=== PATIENT | male | born 1965 | race Caucasian/White ===

== ENCOUNTER 2021-07-25 17:20 | Inpatient (IN) | payer BC ==
[~2021-07-25] VITALS: Ht 182.9 cm; Wt 93.9 kg
[2021-07-25] MEDS ORDERED: ENOXAPARIN SODIUM INJ 100 MG/ML SYR SC STA (17:44)
[2021-07-25] MEDS ORDERED: ASPIRIN 81 MG CHEW TAB PO ONE ×3 (17:45→21:15)
[2021-07-25 17:52] LABS: BASOPHILS % 0.4 % (0.0-1.0); EOSINOPHILS # (AUTO) 0.2 (0.0-0.4); EOSINOPHILS % 2.2 % (0.0-6.0); HEMATOCRIT 35.2 % (38.2-49.6); HEMOGLOBIN 11.2 g/dL (14.0-18.0); LYMPHOCYTES # (AUTO) 2.4 (1.0-3.2); LYMPHOCYTES % 28.5 % (18.0-39.1); MEAN CORPUSCULAR HEMOGLOBIN 26.5 pg (28-32); MEAN CORPUSCULAR HGB CONC 31.8 g/dL (31-35); MEAN CORPUSCULAR VOLUME 83.2 fL (81-99); MONOCYTES # (AUTO) 0.5 (0.2-0.8); MONOCYTES % 5.7 % (4.4-11.3); NEUTROPHILS # (AUTO) 5.4 (2.1-6.9); NEUTROPHILS % 62.7 % (38.7-80.0); PLATELET COUNT 206 x10e3/uL (140-360); RED BLOOD COUNT 4.23 x10e6/uL (4.3-5.7); RED CELL DISTRIBUTION WIDTH 13.3 % (11.7-14.4)
[2021-07-25] MEDS: ONDANSETRON HCL INJ 2MG/ML 2ML 2 MG/ML VIAL IV PRN (18:10)
[2021-07-25] MEDS: Morphine 4mg Syringe 4 MG/ML INJ IV PRN (18:10)
[2021-07-25 18:12] LABS: ALANINE AMINOTRANSFERASE 45 IU/L (0-55); ALBUMIN 3.9 g/dL (3.5-5.0); ALBUMIN/GLOBULIN RATIO 1.4 (0.8-2.0); ALKALINE PHOSPHATASE 113 IU/L (40-150); ANION GAP 15.8 mmol/L (8-16); BLOOD UREA NITROGEN 24 mg/dL (7-26); BUN/CREATININE RATIO 15 (6-25); CALCIUM 9.2 mg/dL (8.4-10.2); CARBON DIOXIDE 27 mmol/L (22-29); CHLORIDE 98 mmol/L (98-107); CREATINE KINASE 231 IU/L (30-200); CREATININE, SERUM 1.61 mg/dL (0.72-1.25); EST GLOMERULAR FILTRATION RATE 45 ML/MIN (60-); GLUCOSE 104 mg/dL (74-118); POTASSIUM 3.8 mmol/L (3.5-5.1); SODIUM 137 mmol/L (136-145)
[2021-07-25 20:00] VITALS: BP 126/89
[2021-07-25 21:00] VITALS: BP 126/89
[2021-07-25 21:45] VITALS: BP 126/89
[2021-07-25] MEDS ORDERED: HYDROXYZINE HCL25 MG PO (23:29)
[2021-07-25] MEDS ORDERED: TRAZODONE HCL50 MG PO (23:29)
[2021-07-25] MEDS ORDERED: VALSARTAN-HCTZ1 EACH PO (23:29)
[2021-07-25] MEDS ORDERED: CRESTOR10 MG PO (23:29)
[2021-07-25] MEDS ORDERED: CLONAZEPAM1 MG PO (23:29)
[2021-07-26] VITALS (13 sets, daily range): BP systolic 90–137; BP diastolic 61–93
[2021-07-26 02:55] LABS: CREATINE KINASE MB 3.5 ng/mL (0-5.0)
[2021-07-26 05:49] LABS: BASOPHILS % 0.5 % (0.0-1.0); EOSINOPHILS # (AUTO) 0.2 (0.0-0.4); EOSINOPHILS % 3.4 % (0.0-6.0); HEMATOCRIT 36.8 % (38.2-49.6); HEMOGLOBIN 11.6 g/dL (14.0-18.0); LYMPHOCYTES # (AUTO) 2.6 (1.0-3.2); LYMPHOCYTES % 40.3 % (18.0-39.1); MEAN CORPUSCULAR HEMOGLOBIN 26.8 pg (28-32); MEAN CORPUSCULAR HGB CONC 31.5 g/dL (31-35); MONOCYTES # (AUTO) 0.4 (0.2-0.8); MONOCYTES % 6.2 % (4.4-11.3); NEUTROPHILS # (AUTO) 3.2 (2.1-6.9); NEUTROPHILS % 49.3 % (38.7-80.0); PLATELET COUNT 191 x10e3/uL (140-360); RED BLOOD COUNT 4.33 x10e6/uL (4.3-5.7); RED CELL DISTRIBUTION WIDTH 13.3 % (11.7-14.4)
[2021-07-26 06:17] LABS: ALBUMIN 3.8 g/dL (3.5-5.0); ALBUMIN/GLOBULIN RATIO 1.4 (0.8-2.0); ANION GAP 15.4 mmol/L (8-16); CALCIUM 9.1 mg/dL (8.4-10.2); CREATININE, SERUM 1.46 mg/dL (0.72-1.25); POTASSIUM 4.4 mmol/L (3.5-5.1)
[2021-07-26] MEDS ORDERED: HEPARIN SOD (PORCINE) 1000 UNIT/ML 30ML ONE (07:18)
[2021-07-26] MEDS ORDERED: VERAPAMIL HCL 2.5 MG/ML 2 ML VIAL ONE (07:18)
[2021-07-26] MEDS ORDERED: MIDAZOLAM HCL 2 MG/2 ML VIAL ONE ×4 (07:18→09:58)
[2021-07-26] MEDS ORDERED: FENTANYL CITRATE/PF 100MCG/2 ML INJ ONE ×2 (07:19→09:17)
[2021-07-26] MEDS ORDERED: LIDOCAINE HCL 2% LOCAL 20 ML VIAL ONE (07:19)
[2021-07-26] MEDS ORDERED: SODIUM CHLORIDE 0.9% 1000ML 1,000 ML ONE (07:21)
[2021-07-26] MEDS ORDERED: HEPARIN SOD/SOD CHLORIDE 2,000 ML ONE (07:21)
[2021-07-26] MEDS ORDERED: NITROGLYCERIN/D5W 200 MCG/ML 250 ML ONE (07:21)
[2021-07-26] MEDS ORDERED: IOPAMIDOL 370 MG/ML 200 ML INFUS..BTL INJ ONE ×3 (07:21→10:45)
[2021-07-26] MEDS ORDERED: ASPIRIN 325 MG TAB ONE (09:17)
[2021-07-26] MEDS ORDERED: TICAGRELOR 90 MG TABLET ONE (09:17)
[2021-07-26 10:51] LABS: CREATINE KINASE 182 IU/L (30-200)
[2021-07-26] MEDS: Morphine 4mg Syringe 4 MG/ML INJ IV PRN (15:23)
[2021-07-26 17:52] LABS: CHOL/HDL RATIO 3.6 (3.9-4.7)
[2021-07-27] VITALS (8 sets, daily range): BP systolic 95–128; BP diastolic 66–90
[2021-07-27 12:13] LABS: BASOPHILS % 0.5 % (0.0-1.0); EOSINOPHILS # (AUTO) 0.1 (0.0-0.4); HEMATOCRIT 35.9 % (38.2-49.6); HEMOGLOBIN 11.3 g/dL (14.0-18.0); LYMPHOCYTES # (AUTO) 1.6 (1.0-3.2); LYMPHOCYTES % 23.6 % (18.0-39.1); MEAN CORPUSCULAR HEMOGLOBIN 26.7 pg (28-32); MEAN CORPUSCULAR HGB CONC 31.5 g/dL (31-35); MEAN CORPUSCULAR VOLUME 84.7 fL (81-99); MONOCYTES # (AUTO) 0.5 (0.2-0.8); MONOCYTES % 7.1 % (4.4-11.3); NEUTROPHILS # (AUTO) 4.4 (2.1-6.9); NEUTROPHILS % 66.5 % (38.7-80.0); PLATELET COUNT 187 x10e3/uL (140-360); RED BLOOD COUNT 4.24 x10e6/uL (4.3-5.7); RED CELL DISTRIBUTION WIDTH 13.4 % (11.7-14.4)
[2021-07-27 12:34] LABS: ALBUMIN 3.5 g/dL (3.5-5.0); ALBUMIN/GLOBULIN RATIO 1.3 (0.8-2.0); ANION GAP 13.3 mmol/L (8-16); CALCIUM 8.9 mg/dL (8.4-10.2); CREATININE, SERUM 1.27 mg/dL (0.72-1.25); POTASSIUM 4.3 mmol/L (3.5-5.1)
[2021-07-27] MEDS ORDERED: HEPARIN SOD (PORCINE) 1000 UNIT/ML 30ML ONE (12:39)
[2021-07-27] MEDS ORDERED: LIDOCAINE HCL 2% LOCAL 20 ML VIAL ONE ×2 (12:40→14:50)
[2021-07-27] MEDS ORDERED: MIDAZOLAM HCL 2 MG/2 ML VIAL ONE ×3 (12:40→14:18)
[2021-07-27] MEDS ORDERED: FENTANYL CITRATE/PF 100MCG/2 ML INJ ONE ×2 (12:40→14:18)
[2021-07-27] MEDS ORDERED: SODIUM CHLORIDE 0.9% 1000ML 1,000 ML ONE (12:41)
[2021-07-27] MEDS ORDERED: IOPAMIDOL 370 MG/ML 200 ML INFUS..BTL INJ ONE (12:41)
[2021-07-27] MEDS ORDERED: NITROGLYCERIN/D5W 200 MCG/ML 250 ML ONE (12:41)
[2021-07-27] MEDS ORDERED: HEPARIN SOD/SOD CHLORIDE 2,000 ML ONE (12:41)
[2021-07-27] MEDS ORDERED: DIPHENHYDRAMINE HCL INJ 50 MG/ML VIAL ONE (13:30)
[2021-07-27] MEDS ORDERED: CLOPIDOGREL BISULFATE 75 MG TAB ONE (14:51)
[2021-07-27] MEDS ORDERED: ASPIRIN 325 MG TAB ONE (14:52)
[2021-07-27] MEDS: ONDANSETRON HCL INJ 2MG/ML 2ML 2 MG/ML VIAL IV PRN ×2 (15:21→19:50)
[2021-07-27] MEDS: Morphine 4mg Syringe 4 MG/ML INJ IV PRN ×2 (15:21→19:50)
[2021-07-28] VITALS: BP 129/75
[2021-07-28 04:00] VITALS: BP 114/71
[2021-07-28 08:29] VITALS: BP 106/71
[2021-07-28 11:37] VITALS: BP 155/72
[2021-07-28 11:41] VITALS: BP 124/66
[2021-07-28] MEDS ORDERED: CLOPIDOGREL BISULFATE 75 MG TAB PO SCH (13:00)
[2021-07-28] MEDS ORDERED: ASPIRIN 325 MG TAB PO ONE (13:00)
[2021-07-28] MEDS ORDERED: PLAVIX75 MG PO (13:34)
[2021-07-28] MEDS ORDERED: ASPIRIN325 MG PO (13:34)
[2021-07-28] MEDS ORDERED: ASPIRIN CHEW81 MG PO (15:03)
[2021-07-28] MEDS ORDERED: LIPITOR20 MG PO (15:03)
[2021-07-28 15:51] VITALS: BP 120/87
[2021-07-28] MEDS ORDERED: ATORVASTATIN 20 MG TAB PO SCH (21:00)
[2021-07-29] MEDS ORDERED: ASPIRIN 325 MG TAB PO SCH (09:00)
== END 2021-07-28 16:31 | disposition home or self-care (01) | DRG 247 ==
LOC: ER 17:29 → ERHOLD 17:34 → MED/SURG 19:56
PROC: 027035Z Dilation of Coronary Artery, One Artery with Two Drug-eluting Intraluminal Devices, Percutaneous Approach (ICD-10-PCS; principal; 2021-07-26)
PROC: 02703ZZ Dilation of Coronary Artery, One Artery, Percutaneous Approach (ICD-10-PCS; 2021-07-26)
PROC: 4A023N7 Measurement of Cardiac Sampling and Pressure, Left Heart, Percutaneous Approach (ICD-10-PCS; 2021-07-26)
PROC: B2111ZZ Fluoroscopy of Multiple Coronary Arteries using Low Osmolar Contrast (ICD-10-PCS; 2021-07-26)
PROC: 02703Z6 Dilation of Coronary Artery, One Artery, Bifurcation, Percutaneous Approach (ICD-10-PCS; 2021-07-27)
PROC: B2001ZZ Plain Radiography of Single Coronary Artery using Low Osmolar Contrast (ICD-10-PCS; 2021-07-27)
PROC: 4A023N7 Measurement of Cardiac Sampling and Pressure, Left Heart, Percutaneous Approach (ICD-10-PCS; 2021-07-27)
DX: I25.110 Atherosclerotic heart disease of native coronary artery with unstable angina pectoris (principal); N17.9 Acute kidney failure, unspecified; E78.5 Hyperlipidemia, unspecified; F41.9 Anxiety disorder, unspecified; F32.A Depression, unspecified; Z20.822 Contact with and (suspected) exposure to COVID-19; I12.9 Hypertensive chronic kidney disease with stage 1 through stage 4 chronic kidney disease, or unspecified chronic kidney disease; N18.30 Chronic kidney disease, stage 3 unspecified
CPT/HCPCS: 36415; 71045; 80053; 80061; 82550; 82553; 83880; 84484; 85025; 85379; 92920; 92921; 92928; 92929; 93005; 93306; 96361; 96365; 99152; 99153; 99284; C1725; C1760; C1769; C1874; C1887; C1894; J1200; J1644; J1650; J2001; J2250; J2270; J2405; J3010; J7030; Q9967; U0002

== ENCOUNTER 2021-11-28 13:11 | Inpatient (IN) | payer BC ==
[~2021-11-28] VITALS: Ht 185.4 cm; Wt 94.3 kg
[~2021-11-28 13:11] MED LIST: ASPIRIN CHEW81 MG PO; ASPIRIN325 MG PO; CLONAZEPAM1 MG PO; CRESTOR10 MG PO; HYDROXYZINE HCL25 MG PO; LIPITOR20 MG PO; PLAVIX75 MG PO; TRAZODONE HCL50 MG PO; VALSARTAN-HCTZ1 EACH PO
[2021-11-28 13:28] LABS: BASOPHILS % 0.2 % (0.0-1.0); EOSINOPHILS % 0.2 % (0.0-6.0); HEMATOCRIT 40.8 % (38.2-49.6); HEMOGLOBIN 12.8 g/dL (14.0-18.0); LYMPHOCYTES # (AUTO) 1.9 (1.0-3.2); LYMPHOCYTES % 10.9 % (18.0-39.1); MEAN CORPUSCULAR HEMOGLOBIN 26.7 pg (28-32); MEAN CORPUSCULAR HGB CONC 31.4 g/dL (31-35); MEAN CORPUSCULAR VOLUME 85.2 fL (81-99); MONOCYTES # (AUTO) 0.9 (0.2-0.8); MONOCYTES % 5.4 % (4.4-11.3); NEUTROPHILS # (AUTO) 14.5 (2.1-6.9); NEUTROPHILS % 82.8 % (38.7-80.0); PLATELET COUNT 232 x10e3/uL (140-360); RED BLOOD COUNT 4.79 x10e6/uL (4.3-5.7); RED CELL DISTRIBUTION WIDTH 14.3 % (11.7-14.4)
[2021-11-28] MEDS: PIPERACILLIN/TAZOBACTAM 3.375 GM in SODIUM CHLORIDE 0.9% 50ML 50 ML IV SCH ×2 (13:32→21:40)
[2021-11-28] MEDS ORDERED: ONDANSETRON HCL INJ 2MG/ML 2ML 2 MG/ML VIAL IV STA (13:36)
[2021-11-28] MEDS ORDERED: Morphine 4mg Syringe 4 MG/ML INJ IV STA (13:36)
[2021-11-28 13:44] LABS: ALBUMIN 4.4 g/dL (3.5-5.0); ALBUMIN/GLOBULIN RATIO 1.2 (0.8-2.0); ANION GAP 20.9 mmol/L (8-16); CREATININE, SERUM 1.99 mg/dL (0.72-1.25); POTASSIUM 3.9 mmol/L (3.5-5.1)
[2021-11-28 14:02] LABS: CLARITY,URINE CLEAR (CLEAR); COLOR,URINE YELLOW (YELLOW); KETONES,URINE NEGATIVE (NEGATIVE); LEUKOCYTE ESTERASE ,URINE NEGATIVE (NEGATIVE); NITRITE,URINE NEGATIVE (NEGATIVE); PROTEIN,URINE DIPSTICK 2+ (NEGATIVE); URINE UROBILINOGEN 1 mg/dL (0.2 - 1)
[2021-11-28] MEDS ORDERED: SODIUM CHLORIDE 0.9% 1000ML 1,000 ML IV STA (14:11)
[2021-11-28 14:16] LABS: AMORPHOUS SEDIMENT,URINE MODERATE (FEW); BACTERIA,URINE MANY /HPF; EPITHELIAL CELLS,URINE MODERATE /LPF
[2021-11-28] MEDS ORDERED: SODIUM CHLORIDE 0.9% 50ML 50 ML ONE (14:24)
[2021-11-28] MEDS ORDERED: IOPAMIDOL 370 MG/ML 200 ML INFUS..BTL INJ ONE (14:24)
[2021-11-28] MEDS: SODIUM CHLORIDE 0.9% 1000ML 1,000 ML IV SCH ×2 (15:30→21:40)
[2021-11-28 16:52] VITALS: BP 124/80
[2021-11-28 16:56] VITALS: BP 124/80
[2021-11-28 17:07] VITALS: BP 124/80
[2021-11-28] MEDS: ONDANSETRON HCL INJ 2MG/ML 2ML 2 MG/ML VIAL IV PRN (18:06)
[2021-11-28] MEDS: Morphine 4mg Syringe 4 MG/ML INJ IV PRN ×2 (18:06→23:48)
[2021-11-28 20:00] VITALS: BP 100/54
[2021-11-28 21:00] VITALS: BP 100/54
[2021-11-29] VITALS (7 sets, daily range): BP systolic 99–146; BP diastolic 57–92
[2021-11-29] MEDS ORDERED: BISACODYL 5 MG TAB EC PO ONE ×2 (01:00→01:30)
[2021-11-29] MEDS ORDERED: METRONIDAZOLE 500MG/NS 100ML 100 ML IV STA (01:12)
[2021-11-29] MEDS: Morphine 4mg Syringe 4 MG/ML INJ IV PRN ×4 (01:19→21:10)
[2021-11-29] MEDS: PIPERACILLIN/TAZOBACTAM 3.375 GM in SODIUM CHLORIDE 0.9% 50ML 50 ML IV SCH ×4 (02:30→21:10)
[2021-11-29] MEDS ORDERED: CITRATE OF MAGNESIA 300ML BOTTLE PO ONE ×2 (05:00→07:00)
[2021-11-29 05:12] LABS: BASOPHILS % 0.3 % (0.0-1.0); EOSINOPHILS # (AUTO) 0.2 (0.0-0.4); EOSINOPHILS % 1.7 % (0.0-6.0); HEMATOCRIT 35.1 % (38.2-49.6); HEMOGLOBIN 11.3 g/dL (14.0-18.0); LYMPHOCYTES # (AUTO) 2.2 (1.0-3.2); LYMPHOCYTES % 18.9 % (18.0-39.1); MEAN CORPUSCULAR HEMOGLOBIN 26.6 pg (28-32); MEAN CORPUSCULAR HGB CONC 32.2 g/dL (31-35); MEAN CORPUSCULAR VOLUME 82.6 fL (81-99); MONOCYTES # (AUTO) 0.9 (0.2-0.8); MONOCYTES % 7.5 % (4.4-11.3); NEUTROPHILS # (AUTO) 8.2 (2.1-6.9); PLATELET COUNT 206 x10e3/uL (140-360); RED BLOOD COUNT 4.25 x10e6/uL (4.3-5.7); RED CELL DISTRIBUTION WIDTH 14.2 % (11.7-14.4)
[2021-11-29] MEDS: METRONIDAZOLE 500MG/NS 100ML 100 ML IV SCH ×3 (05:23→17:56)
[2021-11-29 05:57] LABS: ALBUMIN 3.5 g/dL (3.5-5.0); ALBUMIN/GLOBULIN RATIO 1.3 (0.8-2.0); ANION GAP 13.7 mmol/L (8-16); CALCIUM 9.1 mg/dL (8.4-10.2); POTASSIUM 3.7 mmol/L (3.5-5.1)
[2021-11-29 06:47] LABS: CREATININE, SERUM 1.55 mg/dL (0.72-1.25)
[2021-11-29] MEDS: SODIUM CHLORIDE 0.9% 1000ML 1,000 ML IV SCH ×3 (07:15→21:11)
[2021-11-29] MEDS: ASPIRIN 81 MG CHEW TAB PO SCH (09:57)
[2021-11-29] MEDS: CLOPIDOGREL BISULFATE 75 MG TAB PO SCH (09:57)
[2021-11-29] MEDS ORDERED: LIDOCAINE HCL 2% LOCAL INJ 5 ML SDV VIAL INJ ONE (12:09)
[2021-11-29] MEDS ORDERED: HYOSCYAMINE SULFATE 0.5 MG/ML INJ ONE (12:09)
[2021-11-29] MEDS ORDERED: MIDAZOLAM HCL 2 MG/2 ML VIAL ONE (12:49)
[2021-11-29] MEDS ORDERED: FENTANYL CITRATE/PF 100MCG/2 ML INJ ONE (12:49)
[2021-11-30] VITALS (8 sets, daily range): BP systolic 101–129; BP diastolic 61–79
[2021-11-30] MEDS: METRONIDAZOLE 500MG/NS 100ML 100 ML IV SCH ×4 (00:21→17:23)
[2021-11-30] MEDS: PIPERACILLIN/TAZOBACTAM 3.375 GM in SODIUM CHLORIDE 0.9% 50ML 50 ML IV SCH ×4 (04:02→20:53)
[2021-11-30] MEDS: Morphine 4mg Syringe 4 MG/ML INJ IV PRN ×5 (04:20→22:10)
[2021-11-30] MEDS: ASPIRIN 81 MG CHEW TAB PO SCH (08:34)
[2021-11-30] MEDS: SODIUM CHLORIDE 0.9% 1000ML 1,000 ML IV SCH ×3 (08:34→22:09)
[2021-11-30] MEDS: ONDANSETRON HCL INJ 2MG/ML 2ML 2 MG/ML VIAL IV PRN ×3 (08:34→17:24)
[2021-11-30] MEDS: CLOPIDOGREL BISULFATE 75 MG TAB PO SCH (08:34)
[2021-11-30] MEDS: LORAZEPAM INJ 2 MG/ML VIAL IV PRN (15:26)
[2021-11-30] MEDS: FLUTICASONE PROPIONATE NASAL SPRAY NS SCH (22:00)
[2021-11-30] MEDS: LORATADINE 10 MG TAB PO SCH (22:10)
[2021-12-01] VITALS (8 sets, daily range): BP systolic 106–130; BP diastolic 56–78
[2021-12-01] MEDS: METRONIDAZOLE 500MG/NS 100ML 100 ML IV SCH ×5 (00:23→23:06)
[2021-12-01] MEDS: PIPERACILLIN/TAZOBACTAM 3.375 GM in SODIUM CHLORIDE 0.9% 50ML 50 ML IV SCH ×4 (02:18→21:38)
[2021-12-01] MEDS: Morphine 4mg Syringe 4 MG/ML INJ IV PRN ×5 (02:19→21:45)
[2021-12-01 05:04] LABS: HEMATOCRIT 35.7 % (38.2-49.6); HEMOGLOBIN 11.1 g/dL (14.0-18.0); MEAN CORPUSCULAR HEMOGLOBIN 26.4 pg (28-32); MEAN CORPUSCULAR HGB CONC 31.1 g/dL (31-35)
[2021-12-01 05:05] LABS: BASOPHILS # (AUTO) 0.1 (0.0-0.1); BASOPHILS % 0.7 % (0.0-1.0); EOSINOPHILS # (AUTO) 0.2 (0.0-0.4); EOSINOPHILS % 3.1 % (0.0-6.0); LYMPHOCYTES # (AUTO) 1.8 (1.0-3.2); LYMPHOCYTES % 25.7 % (18.0-39.1); MONOCYTES # (AUTO) 0.4 (0.2-0.8); MONOCYTES % 5.9 % (4.4-11.3); NEUTROPHILS # (AUTO) 4.5 (2.1-6.9); NEUTROPHILS % 64.3 % (38.7-80.0); PLATELET COUNT 191 x10e3/uL (140-360); RED CELL DISTRIBUTION WIDTH 14.1 % (11.7-14.4)
[2021-12-01 05:43] LABS: ANION GAP 12.9 mmol/L (8-16); CALCIUM 8.5 mg/dL (8.4-10.2); CREATININE, SERUM 1.29 mg/dL (0.72-1.25); POTASSIUM 3.9 mmol/L (3.5-5.1)
[2021-12-01] MEDS: CLOPIDOGREL BISULFATE 75 MG TAB PO SCH (08:51)
[2021-12-01] MEDS: ASPIRIN 81 MG CHEW TAB PO SCH (08:51)
[2021-12-01] MEDS: FLUTICASONE PROPIONATE NASAL SPRAY NS SCH ×3 (08:51→17:18)
[2021-12-01] MEDS ORDERED: FLUTICASONE PROPIONATE NASAL SPRAY NS SCH (09:00)
[2021-12-01] MEDS: SODIUM CHLORIDE 0.9% 1000ML 1,000 ML IV SCH ×3 (09:26→23:15)
[2021-12-01] MEDS ORDERED: TRAZODONE HCL 50 MG TAB PO PRN (21:00)
[2021-12-01] MEDS: MAGNESIUM HYDROXIDE 30 ML UDC PO SCH (21:38)
[2021-12-01] MEDS: ATORVASTATIN 20 MG TAB PO SCH (21:38)
[2021-12-01] MEDS: ONDANSETRON HCL INJ 2MG/ML 2ML 2 MG/ML VIAL IV PRN (21:38)
[2021-12-02] VITALS (8 sets, daily range): BP systolic 97–134; BP diastolic 56–75
[2021-12-02] MEDS: PIPERACILLIN/TAZOBACTAM 3.375 GM in SODIUM CHLORIDE 0.9% 50ML 50 ML IV SCH ×4 (02:55→20:10)
[2021-12-02 05:30] LABS: BASOPHILS % 0.5 % (0.0-1.0); EOSINOPHILS # (AUTO) 0.2 (0.0-0.4); EOSINOPHILS % 2.3 % (0.0-6.0); HEMATOCRIT 33.1 % (38.2-49.6); HEMOGLOBIN 10.3 g/dL (14.0-18.0); LYMPHOCYTES # (AUTO) 1.5 (1.0-3.2); LYMPHOCYTES % 19.9 % (18.0-39.1); MEAN CORPUSCULAR HEMOGLOBIN 26.3 pg (28-32); MEAN CORPUSCULAR HGB CONC 31.1 g/dL (31-35); MEAN CORPUSCULAR VOLUME 84.7 fL (81-99); MONOCYTES # (AUTO) 0.4 (0.2-0.8); NEUTROPHILS # (AUTO) 5.3 (2.1-6.9); PLATELET COUNT 210 x10e3/uL (140-360); RED BLOOD COUNT 3.91 x10e6/uL (4.3-5.7); RED CELL DISTRIBUTION WIDTH 14.2 % (11.7-14.4)
[2021-12-02 06:00] LABS: ANION GAP 11.3 mmol/L (8-16); CALCIUM 8.1 mg/dL (8.4-10.2); CREATININE, SERUM 1.41 mg/dL (0.72-1.25); POTASSIUM 4.3 mmol/L (3.5-5.1)
[2021-12-02] MEDS: METRONIDAZOLE 500MG/NS 100ML 100 ML IV SCH ×3 (06:50→17:00)
[2021-12-02] MEDS: Morphine 4mg Syringe 4 MG/ML INJ IV PRN ×2 (06:52→13:00)
[2021-12-02] MEDS: ASPIRIN 81 MG CHEW TAB PO SCH (09:00)
[2021-12-02] MEDS: FLUTICASONE PROPIONATE NASAL SPRAY NS SCH ×2 (09:04→17:42)
[2021-12-02] MEDS: SODIUM CHLORIDE 0.9% 1000ML 1,000 ML IV SCH ×3 (11:02→23:37)
[2021-12-02] MEDS: ERYTHROMYCIN 500 MG TAB PO SCH ×2 (17:55→23:13)
[2021-12-02] MEDS: NEOMYCIN SULFATE 500 MG TAB PO SCH ×2 (17:55→23:13)
[2021-12-02] MEDS: MAGNESIUM HYDROXIDE 30 ML UDC PO SCH (20:10)
[2021-12-02] MEDS: LORATADINE 10 MG TAB PO SCH (20:10)
[2021-12-02] MEDS: ATORVASTATIN 20 MG TAB PO SCH (20:10)
[2021-12-02 21:57] LABS: % IRON SATURATION 38 % (15-50); IRON 79 ug/dL (65-175); TOTAL IRON BINDING CAPACITY 209 ug/dL (261-478); TRANSFERRIN 149 mg/dL (174-364)
[2021-12-03] VITALS (11 sets, daily range): BP systolic 113–151; BP diastolic 64–91
[2021-12-03] MEDS: METRONIDAZOLE 500MG/NS 100ML 100 ML IV SCH ×2 (00:01→05:20)
[2021-12-03] MEDS: PIPERACILLIN/TAZOBACTAM 3.375 GM in SODIUM CHLORIDE 0.9% 50ML 50 ML IV SCH ×4 (01:53→21:03)
[2021-12-03 06:28] LABS: BASOPHILS % 0.5 % (0.0-1.0); EOSINOPHILS # (AUTO) 0.2 (0.0-0.4); EOSINOPHILS % 2.3 % (0.0-6.0); HEMATOCRIT 34.7 % (38.2-49.6); HEMOGLOBIN 10.7 g/dL (14.0-18.0); LYMPHOCYTES # (AUTO) 1.7 (1.0-3.2); LYMPHOCYTES % 20.9 % (18.0-39.1); MEAN CORPUSCULAR HEMOGLOBIN 26.3 pg (28-32); MEAN CORPUSCULAR HGB CONC 30.8 g/dL (31-35); MEAN CORPUSCULAR VOLUME 85.3 fL (81-99); MONOCYTES # (AUTO) 0.5 (0.2-0.8); MONOCYTES % 5.8 % (4.4-11.3); NEUTROPHILS # (AUTO) 5.7 (2.1-6.9); NEUTROPHILS % 70.1 % (38.7-80.0); PLATELET COUNT 224 x10e3/uL (140-360); RED BLOOD COUNT 4.07 x10e6/uL (4.3-5.7); RED CELL DISTRIBUTION WIDTH 14.5 % (11.7-14.4)
[2021-12-03 06:32] LABS: CALCIUM IONIZED 1.2 mmol/L (1.09-1.30)
[2021-12-03 07:08] LABS: ALBUMIN 3.2 g/dL (3.5-5.0); ALBUMIN/GLOBULIN RATIO 1.2 (0.8-2.0); ANION GAP 12.7 mmol/L (8-16); CREATININE, SERUM 1.47 mg/dL (0.72-1.25); MAGNESIUM 1.5 MG/DL (1.3-2.1); POTASSIUM 3.7 mmol/L (3.5-5.1)
[2021-12-03] MEDS: SODIUM CHLORIDE 0.9% 1000ML 1,000 ML IV SCH ×2 (09:00→19:07)
[2021-12-03] MEDS: FLUTICASONE PROPIONATE NASAL SPRAY NS SCH ×2 (09:00→17:00)
[2021-12-03] MEDS: ONDANSETRON HCL INJ 2MG/ML 2ML 2 MG/ML VIAL IV PRN (09:05)
[2021-12-03] MEDS ORDERED: FENTANYL CITRATE/PF 100MCG/2 ML INJ ONE ×2 (12:33→15:26)
[2021-12-03] MEDS ORDERED: MIDAZOLAM HCL 2 MG/2 ML VIAL ONE (12:33)
[2021-12-03] MEDS ORDERED: HEPARIN SOD/SOD CHLORIDE 1,000 ML ONE (13:28)
[2021-12-03] MEDS ORDERED: NEOSTIGMINE 1 MG/ML 10ML VIAL ONE (13:48)
[2021-12-03] MEDS ORDERED: SEVOFLURANE INHAL SOLN 250 ML PEN BTL ONE (13:48)
[2021-12-03] MEDS ORDERED: ONDANSETRON HCL INJ 2MG/ML 2ML 2 MG/ML VIAL ONE (13:48)
[2021-12-03] MEDS ORDERED: DEXAMETHASONE SOD PHOS INJ 4 MG/ML SDV ONE (13:48)
[2021-12-03] MEDS ORDERED: ATROPINE SULFATE 1 MG/ML VIAL ONE (13:48)
[2021-12-03] MEDS ORDERED: ROCURONIUM BROMIDE 10 MG/ML 5ML VIAL IV ONE (13:48)
[2021-12-03] MEDS ORDERED: LIDOCAINE HCL 2% LOCAL INJ 5 ML SDV VIAL INJ ONE (13:48)
[2021-12-03] MEDS ORDERED: GLYCOPYRROLATE INJ 0.2 MG/ML VIAL ONE (13:48)
[2021-12-03] MEDS ORDERED: PROPOFOL IV EMULSION 10 MG/ML 20 ML VIAL ONE (13:48)
[2021-12-03] MEDS ORDERED: POVIDONE IODINE 0.05% 0.05 % ML PO ONE (13:48)
[2021-12-03] MEDS ORDERED: EPINEPHRINE HCL 1:1000 1ML 1 MG/ML AMP ONE (13:48)
[2021-12-03] MEDS ORDERED: ASPIRIN 81 MG CHEW TAB PO ONE (14:45)
[2021-12-03] MEDS ORDERED: NALOXONE HCL INJ 0.4 MG/ML AMP IV PRN (14:45)
[2021-12-03] MEDS: ACETAMINOPHEN 1000 MG/100 ML IV PRN (15:04)
[2021-12-03] MEDS ORDERED: HYDROMORPHONE 1MG/1ML INJ ONE (15:05)
[2021-12-03] MEDS ORDERED: KETOROLAC TROMETHAMINE 30 MG/ML VIAL ONE (15:14)
[2021-12-03] MEDS: HYDROMORPHONE 0.2MG/ML-SOD CHL 30ML PCA SYRINGE IV PRN ×2 (16:04→20:33)
[2021-12-03 16:10] LABS: CREATINE KINASE MB 3.7 ng/mL (0-5.0)
[2021-12-03] MEDS ORDERED: HYDROMORPHONE 1MG/1ML INJ IV ONE (18:45)
[2021-12-03] MEDS ORDERED: ATORVASTATIN 40 MG TAB PO SCH (21:00)
[2021-12-04] VITALS (12 sets, daily range): BP systolic 104–156; BP diastolic 69–94
[2021-12-04] MEDS: SODIUM CHLORIDE 0.9% 1000ML 1,000 ML IV SCH ×4 (02:19→22:04)
[2021-12-04] MEDS: PIPERACILLIN/TAZOBACTAM 3.375 GM in SODIUM CHLORIDE 0.9% 50ML 50 ML IV SCH ×4 (02:20→14:33)
[2021-12-04] MEDS: HYDROMORPHONE 0.2MG/ML-SOD CHL 30ML PCA SYRINGE IV PRN (04:39)
[2021-12-04] MEDS: FLUTICASONE PROPIONATE NASAL SPRAY NS SCH ×2 (09:00→17:00)
[2021-12-04] MEDS: HYDROMORPHONE 1MG/1ML INJ IV PRN ×2 (11:40→14:45)
[2021-12-04] MEDS: SODIUM CHLORIDE 0.9% 250ML IRRIG IR SCH ×4 (11:42→22:04)
[2021-12-04] MEDS ORDERED: DEXTROSE 50% SYRINGE 50 ML IV PRN (12:00)
[2021-12-04] MEDS: LORAZEPAM INJ 2 MG/ML VIAL IV PRN (13:41)
[2021-12-04] MEDS: ONDANSETRON HCL INJ 2MG/ML 2ML 2 MG/ML VIAL IV PRN (13:58)
[2021-12-04] MEDS: ACETAMINOPHEN 1000 MG/100 ML IV PRN (14:00)
[2021-12-04] MEDS ORDERED: INSULIN REGULAR, HUMAN 100 UNIT/1 ML SQ SCH (16:30)
[2021-12-04] MEDS ORDERED: NALOXONE HCL INJ 0.4 MG/ML AMP IV PRN (20:15)
[2021-12-04] MEDS ORDERED: KETOROLAC TROMETHAMINE 30 MG/ML VIAL IV PRN (20:15)
[2021-12-04] MEDS: MORPHINE SULFATE 1 MG/ML 30ML PCA IV PRN (20:25)
[2021-12-05] VITALS (8 sets, daily range): BP systolic 111–148; BP diastolic 81–96
[2021-12-05] MEDS: PIPERACILLIN/TAZOBACTAM 3.375 GM in SODIUM CHLORIDE 0.9% 50ML 50 ML IV SCH ×4 (01:13→19:37)
[2021-12-05] MEDS: MORPHINE SULFATE 1 MG/ML 30ML PCA IV PRN ×2 (02:05→08:23)
[2021-12-05] MEDS: SODIUM CHLORIDE 0.9% 250ML IRRIG IR SCH ×6 (02:18→23:30)
[2021-12-05] MEDS: SODIUM CHLORIDE 0.9% 1000ML 1,000 ML IV SCH ×3 (08:52→23:15)
[2021-12-05] MEDS: FLUTICASONE PROPIONATE NASAL SPRAY NS SCH ×2 (09:00→17:32)
[2021-12-05 09:53] LABS: BASOPHILS # (AUTO) 0.1 (0.0-0.1); BASOPHILS % 0.4 % (0.0-1.0); EOSINOPHILS # (AUTO) 0.1 (0.0-0.4); EOSINOPHILS % 1.2 % (0.0-6.0); HEMATOCRIT 27.3 % (38.2-49.6); HEMOGLOBIN 8.3 g/dL (14.0-18.0); LYMPHOCYTES # (AUTO) 2.4 (1.0-3.2); MEAN CORPUSCULAR HEMOGLOBIN 26.3 pg (28-32); MEAN CORPUSCULAR HGB CONC 30.4 g/dL (31-35); MEAN CORPUSCULAR VOLUME 86.7 fL (81-99); MONOCYTES % 7.8 % (4.4-11.3); NEUTROPHILS # (AUTO) 8.4 (2.1-6.9); NEUTROPHILS % 69.7 % (38.7-80.0); PLATELET COUNT 219 x10e3/uL (140-360); RED BLOOD COUNT 3.15 x10e6/uL (4.3-5.7); RED CELL DISTRIBUTION WIDTH 15.8 % (11.7-14.4)
[2021-12-05 10:25] LABS: ALBUMIN 2.7 g/dL (3.5-5.0); ALBUMIN/GLOBULIN RATIO 1.2 (0.8-2.0); CALCIUM 7.5 mg/dL (8.4-10.2); CREATININE, SERUM 1.2 mg/dL (0.72-1.25)
[2021-12-06 02:00] VITALS: BP 126/89
[2021-12-06] MEDS: PIPERACILLIN/TAZOBACTAM 3.375 GM in SODIUM CHLORIDE 0.9% 50ML 50 ML IV SCH ×4 (02:45→20:00)
[2021-12-06] MEDS: Pantoprazole IV 40 MG in SODIUM CHLORIDE 0.9% 50ML 50 ML IV SCH ×5 (03:23→22:41)
[2021-12-06] MEDS: SODIUM CHLORIDE 0.9% 250ML IRRIG IR SCH ×6 (03:30→23:30)
[2021-12-06 04:00] VITALS: BP 128/77
[2021-12-06 05:52] LABS: BASOPHILS % 0.5 % (0.0-1.0); EOSINOPHILS # (AUTO) 0.2 (0.0-0.4); HEMATOCRIT 25.8 % (38.2-49.6); HEMOGLOBIN 7.9 g/dL (14.0-18.0); LYMPHOCYTES # (AUTO) 1.8 (1.0-3.2); LYMPHOCYTES % 20.6 % (18.0-39.1); MEAN CORPUSCULAR HEMOGLOBIN 26.7 pg (28-32); MEAN CORPUSCULAR HGB CONC 30.6 g/dL (31-35); MEAN CORPUSCULAR VOLUME 87.2 fL (81-99); MONOCYTES # (AUTO) 0.6 (0.2-0.8); MONOCYTES % 7.3 % (4.4-11.3); PLATELET COUNT 240 x10e3/uL (140-360); RED BLOOD COUNT 2.96 x10e6/uL (4.3-5.7); RED CELL DISTRIBUTION WIDTH 15.5 % (11.7-14.4)
[2021-12-06 05:55] LABS: INR 1.26; PROTHROMBIN TIME 16.6 seconds (11.9-14.5)
[2021-12-06 06:06] LABS: ALBUMIN 2.6 g/dL (3.5-5.0); ALBUMIN/GLOBULIN RATIO 1.2 (0.8-2.0); ANION GAP 11.7 mmol/L (8-16); CALCIUM 8.1 mg/dL (8.4-10.2); CREATININE, SERUM 1.09 mg/dL (0.72-1.25); POTASSIUM 3.7 mmol/L (3.5-5.1)
[2021-12-06 07:00] VITALS: BP 127/82
[2021-12-06] MEDS: SODIUM CHLORIDE 0.9% 1000ML 1,000 ML IV SCH ×2 (07:55→15:08)
[2021-12-06] MEDS: FLUTICASONE PROPIONATE NASAL SPRAY NS SCH ×2 (08:31→16:25)
[2021-12-06 09:00] VITALS: BP 136/90
[2021-12-06] MEDS: MORPHINE SULFATE 1 MG/ML 30ML PCA IV PRN ×2 (11:25→17:00)
[2021-12-06] MEDS ORDERED: BISACODYL 10 MG SUPP PR ONE (12:30)
[2021-12-06 19:39] VITALS: BP 147/88
[2021-12-06] MEDS: BISACODYL 10 MG SUPP PR SCH (21:00)
[2021-12-06 22:00] VITALS: BP 149/96
[2021-12-07 02:00] VITALS: BP 159/97
[2021-12-07] MEDS ORDERED: PHYTONADIONE 10 MG/ML AMP IV ONE (02:15)
[2021-12-07] MEDS ORDERED: PHYTONADIONE 10MG/ML 20 MG in SODIUM CHLORIDE 0.9% 100 ML IV ONE (02:30)
[2021-12-07] MEDS: PIPERACILLIN/TAZOBACTAM 3.375 GM in SODIUM CHLORIDE 0.9% 50ML 50 ML IV SCH ×4 (03:05→20:00)
[2021-12-07] MEDS: SODIUM CHLORIDE 0.9% 1000ML 1,000 ML IV SCH ×2 (03:05→14:00)
[2021-12-07] MEDS: SODIUM CHLORIDE 0.9% 250ML IRRIG IR SCH ×3 (03:18→12:00)
[2021-12-07] MEDS: Pantoprazole IV 40 MG in SODIUM CHLORIDE 0.9% 50ML 50 ML IV SCH ×4 (03:18→19:00)
[2021-12-07] MEDS: BISACODYL 10 MG SUPP PR SCH (08:00)
[2021-12-07] MEDS: FLUTICASONE PROPIONATE NASAL SPRAY NS SCH ×2 (09:00→17:00)
[2021-12-07 12:00] VITALS: BP 150/86
[2021-12-07] MEDS: MORPHINE SULFATE 1 MG/ML 30ML PCA IV PRN (13:00)
[2021-12-07 13:26] LABS: BASOPHILS % 0.3 % (0.0-1.0); EOSINOPHILS # (AUTO) 0.1 (0.0-0.4); EOSINOPHILS % 0.6 % (0.0-6.0); HEMATOCRIT 27.9 % (38.2-49.6); LYMPHOCYTES # (AUTO) 1.2 (1.0-3.2); LYMPHOCYTES % 11.5 % (18.0-39.1); MEAN CORPUSCULAR HEMOGLOBIN 27.1 pg (28-32); MEAN CORPUSCULAR HGB CONC 32.3 g/dL (31-35); MONOCYTES # (AUTO) 0.5 (0.2-0.8); MONOCYTES % 4.9 % (4.4-11.3); NEUTROPHILS # (AUTO) 8.9 (2.1-6.9); NEUTROPHILS % 82.3 % (38.7-80.0); PLATELET COUNT 271 x10e3/uL (140-360); RED BLOOD COUNT 3.32 x10e6/uL (4.3-5.7); RED CELL DISTRIBUTION WIDTH 15.7 % (11.7-14.4)
[2021-12-07 13:49] LABS: ALBUMIN 2.8 g/dL (3.5-5.0); ALBUMIN/GLOBULIN RATIO 1.1 (0.8-2.0); ANION GAP 14.5 mmol/L (8-16); CALCIUM 8.5 mg/dL (8.4-10.2); CREATININE, SERUM 0.92 mg/dL (0.72-1.25); POTASSIUM 3.5 mmol/L (3.5-5.1)
[2021-12-07 16:30] VITALS: BP 160/95
[2021-12-07 20:00] VITALS: BP 156/94
[2021-12-08] VITALS (8 sets, daily range): BP systolic 140–171; BP diastolic 68–106
[2021-12-08] MEDS: PIPERACILLIN/TAZOBACTAM 3.375 GM in SODIUM CHLORIDE 0.9% 50ML 50 ML IV SCH ×2 (02:00→09:07)
[2021-12-08] MEDS: MORPHINE SULFATE 1 MG/ML 30ML PCA IV PRN (02:35)
[2021-12-08] MEDS: SODIUM CHLORIDE 0.9% 1000ML 1,000 ML IV SCH ×3 (03:34→16:27)
[2021-12-08] MEDS: Pantoprazole IV 40 MG in SODIUM CHLORIDE 0.9% 50ML 50 ML IV SCH ×6 (06:21→20:22)
[2021-12-08] MEDS ORDERED: PIPERACILLIN/TAZOBACTAM 3.375 GM VIAL ONE (08:03)
[2021-12-08] MEDS: FLUTICASONE PROPIONATE NASAL SPRAY NS SCH ×2 (09:00→17:00)
[2021-12-08] MEDS ORDERED: SODIUM CHLORIDE 0.9% 50ML 50 ML ONE (09:38)
[2021-12-08] MEDS: BUSPIRONE HCL 5 MG TAB PO PRN ×2 (10:38→20:22)
[2021-12-08] MEDS: ONDANSETRON HCL INJ 2MG/ML 2ML 2 MG/ML VIAL IV PRN ×3 (11:18→20:22)
[2021-12-08] MEDS ORDERED: HYDRALAZINE HCL 20 MG/ML VIAL IV PRN (13:15)
[2021-12-08] MEDS ORDERED: BUSPIRONE HCL5 MG PO (16:49)
[2021-12-08] MEDS ORDERED: HYDROMORPHONE 1MG/1ML INJ IV PRN (17:00)
[2021-12-08] MEDS: DIPHENHYDRAMINE HCL INJ 50 MG/ML VIAL IV PRN (20:22)
[2021-12-08] MEDS: ATORVASTATIN 40 MG TAB PO SCH (20:23)
[2021-12-08] MEDS: HYDROCODONE/APAP 7.5MG-325MG 1 EA TAB PO PRN (20:23)
[2021-12-09] VITALS (7 sets, daily range): BP systolic 142–162; BP diastolic 81–99
[2021-12-09] MEDS: HYDROCODONE/APAP 7.5MG-325MG 1 EA TAB PO PRN
[2021-12-09] MEDS: Pantoprazole IV 40 MG in SODIUM CHLORIDE 0.9% 50ML 50 ML IV SCH ×5 (02:05→21:04)
[2021-12-09] MEDS: DIPHENHYDRAMINE HCL INJ 50 MG/ML VIAL IV PRN (03:09)
[2021-12-09] MEDS: BUSPIRONE HCL 5 MG TAB PO PRN (03:10)
[2021-12-09 05:55] LABS: CALCIUM 7.7 mg/dL (8.4-10.2); CREATININE, SERUM 0.94 mg/dL (0.72-1.25)
[2021-12-09] MEDS: ONDANSETRON HCL INJ 2MG/ML 2ML 2 MG/ML VIAL IV PRN (08:47)
[2021-12-09] MEDS: FLUTICASONE PROPIONATE NASAL SPRAY NS SCH ×2 (09:00→17:00)
[2021-12-09] MEDS ORDERED: SUBOXONE 8 MG-1 EAC2 SL (09:22)
[2021-12-09] MEDS: BUPRENORPHINE HCL SL SCH ×2 (09:47→21:04)
[2021-12-09] MEDS: NALOXONE HCL SL SCH ×2 (09:47→21:04)
[2021-12-09] MEDS: HYDROXYZINE HCL 25 MG TAB PO SCH ×4 (10:19→21:04)
[2021-12-09] MEDS ORDERED: POTASSIUM CHLORIDE 20 MEQ TAB CR PO ONE (12:00)
[2021-12-09] MEDS: HYDROCHLOROTHIAZIDE 25 MG TAB PO SCH (12:40)
[2021-12-09] MEDS: CLOPIDOGREL BISULFATE 75 MG TAB PO SCH (12:40)
[2021-12-09] MEDS: ASPIRIN 81 MG CHEW TAB PO SCH (12:40)
[2021-12-09] MEDS: VALSARTAN 80 MG TAB PO SCH (12:40)
[2021-12-09] MEDS: ACETAMINOPHEN 325 MG TAB PO PRN ×2 (13:24→18:29)
[2021-12-09] MEDS: SODIUM CHLORIDE 0.9% 1000ML 1,000 ML IV SCH (15:15)
[2021-12-09] MEDS: ATORVASTATIN 40 MG TAB PO SCH (21:04)
[2021-12-10] VITALS: BP 133/76
[2021-12-10] MEDS: Pantoprazole IV 40 MG in SODIUM CHLORIDE 0.9% 50ML 50 ML IV SCH ×3 (03:00→12:12)
[2021-12-10 04:00] VITALS: BP 117/80
[2021-12-10 08:11] VITALS: BP 123/75
[2021-12-10] MEDS: SODIUM CHLORIDE 0.9% 1000ML 1,000 ML IV SCH (08:25)
[2021-12-10] MEDS: HYDROXYZINE HCL 25 MG TAB PO SCH ×2 (08:25→12:12)
[2021-12-10] MEDS: ASPIRIN 81 MG CHEW TAB PO SCH (08:25)
[2021-12-10] MEDS: FLUTICASONE PROPIONATE NASAL SPRAY NS SCH (08:25)
[2021-12-10 08:26] VITALS: BP 123/75
[2021-12-10] MEDS: BUPRENORPHINE HCL SL SCH (08:26)
[2021-12-10] MEDS: HYDROCHLOROTHIAZIDE 25 MG TAB PO SCH (08:26)
[2021-12-10] MEDS: VALSARTAN 80 MG TAB PO SCH (08:26)
[2021-12-10] MEDS: CLOPIDOGREL BISULFATE 75 MG TAB PO SCH (08:26)
[2021-12-10] MEDS: NALOXONE HCL SL SCH (08:26)
[2021-12-10 11:35] VITALS: BP 130/79
[2021-12-10 12:07] LABS: ANION GAP 9.2 mmol/L (8-16); CALCIUM 8.4 mg/dL (8.4-10.2); CREATININE, SERUM 1.02 mg/dL (0.72-1.25); POTASSIUM 3.2 mmol/L (3.5-5.1)
[2021-12-10] MEDS ORDERED: keflex PO (13:59)
== END 2021-12-10 14:50 | disposition home or self-care (01) | DRG 329 ==
LOC: ER 13:20 → ERHOLD 15:21 → MED/SURG2 16:14 → IMCU 12-03 17:25 → MED/SURG 12-07 16:11
PROC: 0DBH8ZX Excision of Cecum, Via Natural or Artificial Opening Endoscopic, Diagnostic (ICD-10-PCS; 2021-11-29)
PROC: 0DBL8ZZ Excision of Transverse Colon, Via Natural or Artificial Opening Endoscopic (ICD-10-PCS; 2021-11-29)
PROC: 02HV33Z Insertion of Infusion Device into Superior Vena Cava, Percutaneous Approach (ICD-10-PCS; 2021-12-03)
PROC: 0DTF0ZZ Resection of Right Large Intestine, Open Approach (ICD-10-PCS; principal; 2021-12-03 11:30)
DX: K63.3 Ulcer of intestine (principal); I46.9 Cardiac arrest, cause unspecified; I47.2 Ventricular tachycardia; F11.23 Opioid dependence with withdrawal; N17.9 Acute kidney failure, unspecified; R00.1 Bradycardia, unspecified; E83.42 Hypomagnesemia; E87.6 Hypokalemia; I25.10 Atherosclerotic heart disease of native coronary artery without angina pectoris; E78.5 Hyperlipidemia, unspecified; K76.0 Fatty (change of) liver, not elsewhere classified; Z95.5 Presence of coronary angioplasty implant and graft; F41.9 Anxiety disorder, unspecified; G89.4 Chronic pain syndrome; T40.2X5A Adverse effect of other opioids, initial encounter; K64.8 Other hemorrhoids; I12.9 Hypertensive chronic kidney disease with stage 1 through stage 4 chronic kidney disease, or unspecified chronic kidney disease; N18.32 Chronic kidney disease, stage 3b
CPT/HCPCS: 36415; 36569; 45378; 71045; 74018; 74177; 80048; 80053; 81001; 82550; 82553; 82607; 82746; 83540; 83690; 83735; 84466; 84484; 85025; 85045; 85610; 88305; 88307; 88309; 88331; 93005; 93306; 94799; 96361; 97139; 99284; J0171; J0461; J1100; J1170; J1200; J1885; J1980; J2001; J2060; J2250; J2270; J2405; J2543; J2710; J3010; J3410; J3430; J7030; J7050; Q9967; U0002

== ENCOUNTER → 2023-01-08 | Outpatient (CLI) | payer BC ==
[~2023-01-08] MED LIST changes: +BUSPIRONE HCL5 MG PO; +DIATRIZOATE MEGL/DIATRIZOA SOD 30 ML BTL PO ONE; +IOPAMIDOL 370 MG/ML 100 ML INFUS..BTL INJ ONE; +SODIUM CHLORIDE 0.9% 500ML 500 ML ONE; +SUBOXONE 8 MG-1 EAC2 SL; +keflex PO
[2023-01-08 17:15] LABS: CREATININE, SERUM 1.99 mg/dL (0.72-1.25)
== END ==
LOC: CT 16:20
PROVIDERS: ATTEND Nurse Practitioner
DX: R19.03 Right lower quadrant abdominal swelling, mass and lump (principal)
CPT/HCPCS: 36415; 74177; 82565; 84520; 96360; J7040; Q9963; Q9967

== ENCOUNTER → 2025-02-02 | Outpatient (REF) | payer BC ==
[~2025-02-02] MED LIST changes: -DIATRIZOATE MEGL/DIATRIZOA SOD 30 ML BTL PO ONE; -IOPAMIDOL 370 MG/ML 100 ML INFUS..BTL INJ ONE; -SODIUM CHLORIDE 0.9% 500ML 500 ML ONE
== END ==
LOC: US 15:23
PROVIDERS: ATTEND Urology
DX: I86.1 Scrotal varices (principal); N50.0 Atrophy of testis; N18.9 Chronic kidney disease, unspecified
CPT/HCPCS: 76770; 76857; 76870; 93976